=== PATIENT | female | born 1945 | race Caucasian/White ===

== ENCOUNTER → 2020-10-11 09:04 | Outpatient (CLI) | payer MEDICARE, OTHER ==
--- NOTE | ~2020-10-11 | ST ---
PATIENT:DUNG VANG [facility] MEDICAL RECORD: [id number] SEX: F LOCATION:[facility] ORDER #: ADMISSION DATE: 10/11/20 AGE OF PATIENT: 75 REFERRING PHYSICIAN: INTERPRETING PHYSICIAN: MATILDE LAMAR MD DATE OF SERVICE: 10/11/2020 NUCLEAR STRESS TEST GATED: Gated is normal with normal wall motion. Normal EF. Calculated EF of 78%. SPECT IMAGING: SPECT imaging was performed. Short axis view: Short axis view shows reversible defect extending from the anterior base down to the mid anterior wall. Horizontal axis: This is confirmed in the horizontal axis with a reversible defect from the anterior base down to the mid anterior wall. Vertical axis: Vertical axis shows good uptake along the lateral wall and septum. FINAL IMPRESSION: 1. Normal gated. No wall motion. Normal EF 78%. 2. Abnormal SPECT imaging. Reversible defect in the anterior lateral wall seen in 2 views. 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 Continuous diagnostic angiography was recommended for further evaluation. TRANSINT:[id number] Voice Confirmation ID: [id number] DOCUMENT ID: [id number] MATILDE LAMAR MD CC: [id number] DICTATION DATE: 10/14/20 0959 LOSS PREVENTION SUPERVISOR: 10/15/20 0159 DEP CLI 10/11/20 [id number] [place] [address]
== END | disposition home or self-care (01) ==
LOC: D.HCCARDIO 09:04
PROVIDERS: ATTEND Internal Medicine Interventional Cardiology
DX: R06.09 Other forms of dyspnea (principal)

== ENCOUNTER 2020-11-12 08:05 | Day surgery (SDC) | payer MEDICARE, OTHER ==
[~2020-11-12] VITALS: Ht 170.2 cm; Wt 118.3 kg
--- NOTE | ~2020-11-12 | HEMODYNAMI ---
PATIENT:DUNG VANG MEDICAL RECORD: [id number] : 41 LOCATION:[facility] ADMISSION DATE: 11/12/20 Generatedon:110:44 Patient name: DUNG VANG Patient #: [id number] SSN: DO B: 1945 Date of study: 11/12/2020 Page: Of Hemodynamic Procedure Report Patient Data Patient Demographics Procedure consent was obtained First Name: DUNG Gender: Female Last Name: TAJ : 1945 [facility] Initial: CHULA Age: 75 year(s) Patient #: [id number] Race: Unknown Additional ID: [id number] Contact details [address]: [address] [place] [address] State: [place] City: [place] Zip code: [address] Past Medical History Allergies Allergen Reaction Date Comments Reported Other allergy 11/12/2020 CIPRO Admission Admission Data Admission Date: 11/12/2020 Admission Time: 8:05 Arrival Date: 11/12/2020 Arrival Time: 0:00 Height (in.): 66.93 BSA: 2.26 (m2) Height (cm.): 170 BMI: 40.83 (kg/m2) Weight (lbs.): 260.15 Weight (kg.): 118 Lab Results Lab Result Date: 11/12/2020 Lab Result Time: 0:00 Biochemistry Name Units Result Min Max BUN mg/dl 19 --(----)*- 7 18 Creatinine mg/dl 1.1 --(--*-)-- 0.6 1.3 eGFR ml/min 51 *-(----)-- 90 120 NONAFRICAN CBC Name Units Result Min Max Hematocrit % 36.8 *-(----)-- 42 54 Hemoglobin g/dl 11.9 *-(----)-- 13.5 17.5 Procedure Procedure Types Cath Procedure Diagnostic Procedure Right Heart RHC and LHC w/Coronaries Sedation Charges Moderate Sedation 40-54 minutes Procedure Description Procedure Date Procedure Date: 11/12/2020 Procedure Start Time: 9:59 Procedure End Time: 10:41 Procedure Staff Name Function Wyatt Parson RN Nurse Denver Bae MD Performing Physician Mary Guillermo RT Monitor Li Price RT Scrub Procedure Data Cath Procedure Fluoroscopy Diagnostic fluoroscopy Total fluoroscopy Time: 7.8 time: 7.8 min min Diagnostic fluoroscopy Total fluoroscopy dose: 720 dose: 720 mGy mGy Contrast Material Contrast Material Type Amount (ml) Isovue 300 86 Entry Location Entry Primary Successful Side Size Upsize Upsize Entry Closure Gupta ccessful Closure Location (Fr) 1 (Fr) 2 (Fr) Remarks Device Remarks Femoral Right 7 Fr Manual artery Short Compression Femoral Right 5 Fr Exoseal artery Estimated blood loss: 10 ml Diagnostic catheters Device Type Used For End Catheter Placement SWAN 7Fr Thermodilution Procedure cather (131F7P) MULTIPACK JL 4.0 5Fr Procedure catheter MULTIPACK 3DRC 5Fr Procedure catheter MULTIPACK Pigtail 5 Fr Ventriculography catheter Procedure Complications No complications Procedure Medications Medication Administration Route Dosage Oxygen etCO2 Nasal cannula 3 l/min Lidocaine 2% added to field 20 Heparin Flush Bag added to field 2 bags (1000units/500ml NS) 0.9% NaCl I.V. 100 ml/hr Versed I.V. 1 mg Fentanyl I.V. 50 mcg Versed I.V. 1 mg Fentanyl I.V. 50 mcg Versed I.V. 1 mg Versed I.V. 1 mg Fentanyl I.V. 50 mcg Hemodynamics Rest HGB: 11.9 (g/dl) O2 Consumption: Estimated: 241.87 (ml/min) O2 Consumption index ed: Estimated:107.02 (ml/min/m) Heart Rate: 114 (bpm) Pressure Samples Time Site Value (mmHg) Purpose Heart Use Rate(bpm) 10:23 PA 56/29(44) Snapshot 104 10:23 PCW 43/38(33) Snapshot 102 10:24 RV 61/10,15 Snapshot 109 10:24 RA 18/12(13) Snapshot 106 10:29 LV 218/-2,16 Snapshot 110 10:29 LV 213/-2,18 Snapshot 108 10:30 LV 201/-1,6 Pullback 91 10:30 AO 185/85(134) Pullback 91 Gradients Valve Time Site 1 Site 2 Mean SEP/DFP Peak To Heart Use (mmHg) (sec/min) Peak Rate (mmHg) (bpm) Aortic 10:30 LV AO 21 22 16 91 201/-1,6 185/85(134) Calculations Valve P-P Mean Valve Index Valve Source Name Gradient Area Flow (cm2) Aortic 16 21 16 21 Snapshots Pre Cath Intra NCS Post Cath Vital Signs Time Heart Resp SPO2 etCO2 NIBP (mmHg) Rhythm Pain Sedation Rate (ipm) (%) (mmHg) Status Level (bpm) 9:48:46 118 23 99 32.2 188/101(152) NSR 0 (11) 10(A) , No pain 9:53:33 116 22 100 29.9 179/89(134) NSR 0 (11) 10(A) , No pain 9:58:18 107 16 99 35.9 161/76(106) NSR 0 (11) 10(A) , No pain 10:02:52 105 15 98 32.9 162/85(115) NSR 0 (11) 9(A) , No pain 10:07:29 104 20 99 24.7 170/85(126) NSR 0 (11) 9(A) , No pain 10:12:09 106 18 99 26.2 163/83(121) NSR 0 (11) 9(A) , No pain 10:16:48 103 20 100 26.9 158/82(108) NSR 0 (11) 9(A) , No pain 10:21:20 99 16 98 32.9 159/88(118) NSR 0 (11) 10(A) , No pain 10:25:55 104 20 99 33.7 167/84(119) NSR 0 (11) 10(A) , No pain 10:30:29 111 21 100 31.4 163/93(125) NSR 0 (11) 10(A) , No pain 10:35:04 108 19 100 33.7 171/90(131) NSR 0 (11) 10(A) , No pain 10:39:44 101 15 99 37.4 167/87(117) NSR 0 (11) 10(A) , No pain Medications Time Medication Route Dose Verified Delivered Reason Notes Eff ectiveness by by 9:46:04 Oxygen etCO2 3 Denver Buffie used for Nasal l/min Bae MD Parson financial services education consultant cannula 9:46:12 Lidocaine 2% added 20ml Denver Denver for local to vial Catalino Bae MD anesthetic field 9:46:18 Heparin Flush added 2 Denver Denver used for Bag to bags Catalino Bae MD procedure (1000units/500ml field NS) 9:46:29 0.9% NaCl I.V. 100 Denver Buffie Per ml/hr Catalino Parson RN physician 9:55:14 Versed I.V. 1 mg Denver Buffie for Catalino Parson RN sedation 9:55:20 Fentanyl I.V. 50 Denver Buffie for mcg Catalino Parson RN sedation 10:00:24 Versed I.V. 1 mg Denver Buffie for Catalino Parson RN sedation 10:00:27 Fentanyl I.V. 50 Denver Buffie for mcg Catalino Parson RN sedation 10:05:44 Versed I.V. 1 mg Denver Buffie for Catalino Parson RN sedation 10:10:46 Versed I.V. 1 mg Denver Buffie for Catalino Parson RN sedation 10:18:36 Fentanyl I.V. 50 Denver Buffie for mcg Catalino Parson RN sedation Procedure Log Time Note 9:18:11 Informed consent obtained and on chart 9:18:29 Procedure Status Elective Heart Cath (OP). 9:18:31 Time tracking: Regular hours (M-F 7:00 - 5:00) 9:18:34 Plan of Care:Hemodynamics will remain stable., Cardiac rhythm will remain stable., Comfort level will be maintained., Respiratory function will remain adequate., Patient/ family verbilizes understanding of procedure., Procedure tolerated without complication., Recovers from procedure without complications.. 9:18:37 Wyatt Parson RN sent for patient. Start room use. 9:29:06 H&P Date Dictated: 11/01/2020 Within 30 days and on chart., H&P Addendum completed by physician on day of procedure. (MUST COMPLETE FOR ALL OUTPATIENTS). 9:29:18 Patient allergic to Other allergyCIPRO 9:29:44 Lab Result : Hemoglobin 11.9 g/dl 9::44 Lab Result : Hematocrit 36.8 % 9::44 Lab Result : eGFR NONAFRICAN 51 ml/min 9:29:44 Lab Result : BUN 19 mg/dl :: Lab Result : Creatinine 1.1 mg/dl 9::55 Stress Test: yes; abnormal ANTERIOR 9:30:46 Patient Weight : 260.15 lbs 9::49 Patient Height : 66.93 inches 9:30:53 Arrival Date: 11/12/2020 12:00:00 AM 9:38:45 Patient received from Pre/Post Procedure Room to CCL 1 Alert and oriented. Tansferred to table in Supine position. 9:38:46 Warm blankets applied, and xoimara hugger turned on for patient comfort. 9:38:47 Correct patient and procedure confirmed by team. 9:38:48 ECG and BP/O2 sat monitors applied to patient. 9:45:54 Vital chart was started 9:46:04 Oxygen 3 l/min etCO2 Nasal cannula was administered by Wyatt Parson RN; used for procedure; Verbal order read back and verified. 9:46:12 Lidocaine 2% 20ml vial added to field was administered by Denver Bae MD; for local anesthetic; Verbal order read back and verified. 9:46:18 Heparin Flush Bag (1000units/500ml NS) 2 bags added to field was administered by Denver Bae MD; used for procedure; Verbal order read back and verified. 9:46:28 0.9% NaCl 100 ml/hr I.V. was administered by Wyatt Parson RN; Per physician; Verbal order read back and verified. 9:51:23 Baseline sample Acquired. 9:51:27 Full Disclosure recording started 9:51:29 Pre-procedure instructions explained to patient. 9:51:32 Family in patients room. 9:51:35 Patient NPO since Midnight. 9:51:43 Is the patient allergic to Iodine/contrast media? No. 9:51:45 Was the patient premedicated? Yes 9:51:48 Is patient on blood thinner?No 9:52:02 Patient diabetic? Unknown. 9:52:10 Snore? No 9:52:11 Sleep apnea? Yes 9:52:22 Airway obstruction? No SOB 9:52:33 IV patent on arrival in left forearm with 0.9% NaCl at O. 9:52:38 Lab results completed and on chart. 9:53:10 Stress Test: yes; normal ? 9:53:33 Stress Test: yes; abnormal anterior/lateral 9:53:38 Right groin area was prepped with chlora-prep and draped in sterile fashion 9:53:39 Alarms reviewed by RFilippo N. 9:53:41 Sharps counted by scrub and verified by R.N. 9:53:45 --------ALL STOP TIME OUT------ 9:53:45 Physician arrived 9:53:47 Final Timeout: patient, procedure, and site verified with staff and physician. All members of the team are in agreement. 9:53:59 Right groin site verified by team. 9:54:04 Fire Safety Assessment: A--An alcohol-based skin anteseptic being used preoperatively., C--Open oxygen or nitrous oxide is being used., D--An ESU, laser, or fiber-optic light is being used. 9:54:15 Physical assessment completed. ASA score P 3 - A patient with severe systemic disease as per Denver Bae MD. 9:54:24 3a) 45-59 Moderately reduced kidney function. 9:54:54 Maximum allowable contrast dose (3.7 X eGFR X 0.75)141 ml. 9:54:58 Sedation plan: IV Moderate Sedation Medication:Versed, Fentanyl 9:55:07 Use device set Femoral Dx 9:55:14 Versed 1 mg I.V. was administered by Wyatt Parson RN; for sedation; Verbal order read back and verified. 9:55:20 Fentanyl 50 mcg I.V. was administered by Wyatt Parson RN; for sedation; Verbal order read back and verified. 9:59:02 Procedure type changed to Cath procedure, Diagnostic procedure, Right Heart, RHC and LHC w/Coronaries, Sedation Charges, Moderate Sedation 40-54 minutes 9:59:07 Procedure started. 9:59:26 Local anesthetic to right femoral artery with Lidocaine 2% by Denver Bae MD.INITIAL ACCESS ONLY 10:00:24 Versed 1 mg I.V. was administered by Wyatt Parson RN; for sedation; Verbal order read back and verified. 10:00:27 Fentanyl 50 mcg I.V. was administered by Wyatt Parson RN; for sedation; Verbal order read back and verified. 10:05:44 Versed 1 mg I.V. was administered by Wyatt Parson RN; for sedation; Verbal order read back and verified. 10:07:21 Access obtained with 4Fr micropunture. 10:09:10 ACIST Syringe (05558) opened to sterile field. 10:09:11 Bag Decanter (2002S) opened to sterile field. 10:09:12 Medline Cath Pack ([id number]) opened to sterile field. 10:09:14 ACIST Manifold (33128) opened to sterile field. 10:09:14 ACIST Hand Control (81896) opened to sterile field. 10:09:20 Tegaderm 4 x 4 (1626W) opened to sterile field. 10:09:20 DIAGNOSTIC Multipack 5Fr catheter set (WW4858) opened to sterile field. 10:09:22 MICROPUNCTURE 4FR Cook (X67494) opened to sterile field. 10:09:28 SHEATH 5FR [place] (NPE700) opened to sterile field. 10:09:31 EMERALD Guide Wire (286-147) opened to sterile field. 10:09:32 SHEATH 7FR [place] (RGI828) opened to sterile field. 10:10:46 Versed 1 mg I.V. was administered by Wyatt Parson RN; for sedation; Verbal order read back and verified. 10:15:59 A 7 Fr Short sheath was inserted into the Right Femoral artery 10:18:36 Fentanyl 50 mcg I.V. was administered by Wyatt Parson RN; for sedation; Verbal order read back and verified. 10:19:11 A 5 Fr sheath was inserted into the Right Femoral artery 10:19:29 A SWAN 7Fr Thermodilution cather (131F7P) was advanced over the wire and used for Procedure. 10:20:07 Dugger-Milana "C" tip catheter inserted 10:21:59 DIAGNOSTIC WIRE .025 150cm J (575616) opened to sterile field. 10:24:39 Right heart pressures obtained. 10:24:41 Dugger-Milana removed. 10:25:04 A MULTIPACK JL 4.0 5Fr catheter was advanced over the wire and used for Procedure. 10:25:13 LCA angiography performed. 10:26:49 Catheter removed. 10:26:56 A MULTIPACK 3DRC 5Fr catheter was advanced over the wire and used for Procedure. 10:27:19 RCA angiography performed. 10:28:13 Catheter removed. 10:28:24 A MULTIPACK Pigtail 5 Fr catheter was advanced over the wire and used for Ventriculography. 10:28:27 LV gram done using GLORIA 10:30:02 EF : 55 % 10:30:34 Aortic Root visualized 10:30:43 EXOSEAL 5Fr (EX500) opened to sterile field. 10:30:57 Catheter removed. 10:32:16 Sheath removed intact; hemostasis achieved with Exoseal to the Right Femoral artery. 10:33:17 Sheath removed intact; hemostasis achieved with Manual Compression to the Right Femoral artery. 10:36:18 Procedure ended.(Physican Out) 10:36:29 Fluoroscopy time 07.80 minutes. 10:36:35 Fluoroscopy dose: 720 mGy 10:36:35 Flurop Dose total: 720 10:36:43 Dose Area Product 72897 mGy/cm. 10:36:48 Contrast amount:Isovue 300 86ml. 10:36:50 Maximum allowable dose exceeded? No. 10:36:51 Sharps counted by scrub and verified by R.N. 10:36:53 Insertion/operative site no bleeding no hematoma. 10:36:56 Post-op/insertion site Right Femoral artery dressed using a 4 x 4 and Tegaderm. 10:37:11 Post-op/insertion site Right Femoral vein dressed using a 4 x 4 and Tegaderm. 10:37:39 Post Procedure Pulses reassessed and unchanged 10:37:53 Post-procedure physical assessment completed. ASA score P 2 - A patient with mild systemic disease as per Denver Bae MD. 10:38:07 Post procedure rhythm: sinus tachycardia 10:38:11 Estimated blood loss: 10 ml 10:38:13 Post procedure instruction explained to patient.Patient verbalizes understanding. 10:39:26 Procedure and supply charges have been captured, reviewed, submitted and are correct. 10:40:26 Procedure Complication : No complications 10:40:30 Vital chart was stopped 10:40:38 LHC Findings: mild to moderate CAD (<70%) 10:40:54 RHC Findings: PHTN: see procedure notes for sats and pressures 10:41:01 Operative report dictated upon procedure completion. 10:41:02 See physician's report for complete and final results. 10:41:04 Report given to Pre/Post Procedure Room. 10:41:10 Patient transfered to Pre/Post Procedure Room with Stretcher. 10:41:13 Full Disclosure recording stopped 10:41:13 Procedure ended. 10:41:20 End room use (Document Last) 10:41:49 End room use (Document Last) 10:42:14 End room use (Document Last) Device Usage Item Name Manufacture Quantity Catalog Hospital Part Current Minima l Lot# / Number Charge Number Stock Stock Serial# Code ACIST Syringe Acist 1 98107 490786 067115 920720 20 (92194) Medical Systems Inc Bag Decanter Microtek 1 2001S 634398 99140 579659 5 (2001S) Medical Inc. Medline Cath Medline 1 [id number] 207071 02437 506921 5 Pack ([id number]) ACIST Hand Acist 1 09311 317218 828457 098174 5 Control Medical (92618) Systems Inc ACIST Manifold Acist 1 63412 438661 802727 956147 5 (13760) Medical Systems Inc DIAGNOSTIC Cardinal 1 QN3096 535067 14048 111960 30 Multipack 5Fr Health catheter set (DT6904) Tegaderm 4 x 4 3M 1 1626W 795117 358314 386881 5 (1626W) MICROPUNCTURE Cook Medical 1 S26083 352528 463127 924944 5 4FR Cook (Q54092) SHEATH 5FR Terumo 1 MXU201 876279 138551 593893 5 [place] (EDH254) EMERALD Guide Cardinal 1 502-455 314215 296492 338467 5 Wire (502-455) Health SHEATH 7FR Terumo 1 XNT286 839956 330136 619101 5 [place] (RIQ039) SWAN 7Fr Kennedy 1 131F7P 516331 26379 456121 3 Thermodilution Lifesciences cather (131F7P) DIAGNOSTIC St Santos 1 443143 852141 539289 514598 2 WIRE .025 150cm J (102745) MULTIPACK JL Cardinal 1 448716 5 4.0 5Fr Health catheter MULTIPACK 3DRC Cardinal 1 148500 5 5Fr catheter Health MULTIPACK Cardinal 1 498742 5 Pigtail 5 Fr Health catheter EXOSEAL 5Fr Cardinal 1 EX500 755505 449008 050114 10 (EX500) Health Signature Audit [place] Stage Time Signature Unsigned Intra-Procedure 11/12/2020 Mary Guillermo 10:41:49 AM RT(R) Intra-Procedure 11/12/2020 Wyatt Parson RN 10:42:14 AM Intra-Procedure 11/12/2020 Denver Bae MD 10:42:41 AM [place] [id number] [place] [id number]
[2020-11-12] MEDS ORDERED: FUROSEMIDE40 MG PO (08:22)
[2020-11-12] MEDS ORDERED: MICARDIS40 MG PO (08:23)
[2020-11-12] MEDS ORDERED: K-DUR20 MEQ PO (08:23)
[2020-11-12] MEDS ORDERED: PIOGLITAZONE15 MG PO (08:24)
[2020-11-12] MEDS ORDERED: LIPITOR20 MG PO (08:24)
[2020-11-12] MEDS ORDERED: TOPROL XL100 MG PO (08:24)
[2020-11-12] MEDS ORDERED: BAYER CHEWABLE81 MG PO (08:25)
[2020-11-12] MEDS ORDERED: GLUCOPHAGE500 MG PO (08:25)
[2020-11-12] MEDS ORDERED: NEURONTIN 300300 MG PO (08:25)
[2020-11-12] MEDS ORDERED: FISH OIL 1,0001 CA1 PO (08:26)
[2020-11-12] MEDS ORDERED: VITAMIN C500 M1 PO (08:26)
[2020-11-12] MEDS ORDERED: ACETAMINOPHEN325 MG PO (08:27)
[2020-11-12] MEDS ORDERED: MULTI-DAY VITAM1 TAB PO (08:27)
[2020-11-12] MEDS ORDERED: GALZIN50 MG PO (08:27)
[2020-11-12] MEDS ORDERED: SUPER B COMPLE1 EAC1 PO (08:27)
[2020-11-12 08:42] VITALS: BP 204/97; Ht 170.2 cm; Wt 118.3 kg
[2020-11-12 09:01] LABS: BASOPHILS 0.9 % (0-2); EOSINOPHILS 1.9 % (0-7); HEMATOCRIT 36.8 % (36.0-48.0); HEMOGLOBIN 11.9 g/dL (12-16); IMMATURE GRANULOCYTES 0.4 % (0-5); LYMPHOCYTE ABS# 2.15 10x3/uL (1.18-3.74); LYMPHOCYTES 27.4 % (15-50); MCH 29.1 pg (26.0-34.0); MCHC 32.3 g/dL (31.0-37.0); MEAN PLATELET VOLUME 10.7 fL (7.4-10.4); MONOCYTES 9.9 % (2-11); NEUTROPHIL ABS# 4.67 10x3/uL (1.56-6.13); NEUTROPHILS 59.5 % (40-80); PLATELET COUNT 274 10x3/uL (130-400); RBC 4.09 10x6/uL (4.00-5.40); RDW 15.2 % (11.5-14.5); WBC 7.9 10x3/uL (4.8-10.8)
[2020-11-12 09:11] LABS: ANION GAP 16.8 mmol/L (8-16); CALCIUM 10.1 mg/dL (8.5-10.1); CARBON DIOXIDE 27.9 mmol/L (21.0-32.0); CHOL - HDL RATIO 2.8 ratio (2.3-4.1); CREATININE - SERUM 1.1 mg/dL (0.6-1.3); LDL-HDL RATIO 1.3 ratio (1.5-3.5); POTASSIUM - SERUM 3.7 mmol/L (3.5-5.1)
--- NOTE | 2020-11-12 10:50 | NUR ---
PT REC'D TO ARCHITECTURAL ENGINEERING TEACHER RECOVERY ROOM 8 VIA STRETCHER. MONITORS ESTAB. AT BS. SEE BINDER FOLDER OPERATOR FLOWSHEETS. ALARMS ON AND C/L IN REACH.
--- NOTE | 2020-11-12 11:05 | NUR ---
R GROIN SITE SOFT, NO S/S BLEEDING OR HEMATOMA. R LEG/FOOT WARM WITH PALP PULSES. PT AWAKE, DENIES PAIN OR NEEDS. VSS. ALARMS ON AND C/L IN REACH.
--- NOTE | 2020-11-12 11:35 | NUR ---
R GROIN EXOSEAL SITE SOFT, NO S/S BLEEDING OR HEMATOMA. R LEG/FOOT WARM WITH PALP PULSES. PT RESTING QUIETLY. VSS. ALARMS ON AND C/L IN REACH.
--- NOTE | 2020-11-12 11:50 | NUR ---
PT RESTING QUIETLY, R GROIN SITE SOFT, NO S/S BLEEDING OR HEMATOMA. PULSES PALP. CAP REFILL WNL. VSS. ALARMS ON AND C/L IN REACH.
--- NOTE | 2020-11-12 12:10 | NUR ---
R GROIN SITE SOFT, NO S/S BLEEDING OR HEMATOMA. PULSES PALP. HOB ELEVATED. VSS. GIVEN TEA PER REQUEST, REFUSED SANDWICH AT THIS TIME. ALARMS ON AND C/L IN REACH.
--- NOTE | 2020-11-12 12:25 | NUR ---
R GROIN SITE SOFT, NO S/S BLEEDING OR HEMATOMA, PULSES PALP. ALARMS ON. C/L IN REACH.
--- NOTE | 2020-11-12 12:35 | NUR ---
DR. GERMAN IN TO SEE PT, UPDATE GIVEN AND QUESTIONS ANSWERED.
--- NOTE | 2020-11-12 12:45 | NUR ---
R GROIN SITE SOFT, NO S/S/ BLEEDING OR HEMATOMA. PULSES PALP. PT DENIES PAIN OR NEEDS.
--- NOTE | 2020-11-12 12:55 | NUR ---
R GROIN SITE SOFT, NO S/S BLEEDING OR HEMATOMA. PULSES PALP. PIV D/C'D INTACT, DSG APPLIED. PT ALLOWED UP TO GET DRESSED AND GO TO BR INDEPENDENTLY.
--- NOTE | 2020-11-12 12:59 | NUR ---
ALL DISCHARGE INSTRUCTIONS REVIEWED WITH PT AND HER , INCLUDING RESTRICTIONS, MEDS AND F/U APPT. BOTH VERBALIZE UNDERSTANDING.
--- NOTE | 2020-11-12 13:04 | NUR ---
PT D/C'D VIA WC TO PRIVATE VEHICLE WITH ALL PAPERWORK AND BELONGINGS.
== END 2020-11-12 13:04 | disposition home or self-care (01) ==
LOC: D.CATH 08:05
PROVIDERS: ATTEND Internal Medicine Cardiovascular Disease
DX: I27.20 Pulmonary hypertension, unspecified (principal); R94.39 Abnormal result of other cardiovascular function study; I25.10 Atherosclerotic heart disease of native coronary artery without angina pectoris; R06.00 Dyspnea, unspecified